=== PATIENT | male | born 1970 | race Caucasian/White ===

== ENCOUNTER 2017-04-13 12:36 | Emergency (ER) | payer BC ==
[~2017-04-13] VITALS: Ht 172.7 cm; Wt 110.4 kg
[~2017-04-13 12:36] MED LIST: ANT25 PO; GLC/500 PO; MISCCAP8 PO
[2017-04-13 12:43] VITALS: TEMP 36.6; Ht 172.7 cm; Wt 110.4 kg
[2017-04-13] MEDS ORDERED: MoRPHine SULFATE 10 MG/ML CARP/VIAL IV STA ×2 (13:02→14:35)
[2017-04-13] MEDS ORDERED: SODIUM CHLORIDE 0.9% 1000ML 1,000 ML IV STA (13:02)
[2017-04-13] MEDS ORDERED: ONDANSETRON INJ 2 MG/ML 2 ML VIAL IV STA (13:02)
[2017-04-13] MEDS ORDERED: MoRPHine SULFATE 4 MG/ML 1 ML CARP\\VIAL ONE ×2 (13:10→14:38)
[2017-04-13] MEDS ORDERED: MoRPHine SULFATE 2 MG/ML CARP ONE ×2 (13:11→14:39)
[2017-04-13 13:32] LABS: HEMATOCRIT 43.1 % (42-52); HEMOGLOBIN 15.4 g/dL (14.0-18.0); IG# 0.02 K/uL (0.00-0.02); LYMPH % 13.7 %; LYMPH ABS # 0.55 K/uL (1.2-3.4); MEAN CELL VOLUME 84.7 fL (80-100); MEAN CORPUSCULAR HEMOGLOBIN 30.3 pg (25-34); MEAN CORPUSCULAR HGB CONC 35.7 g/dl (32-36); MEAN PLATELET VOLUME 9.6 fL (7.4-10.4); MONO % 13.7 %; MONO ABS # 0.55 K/uL (0.11-0.59); NEUT % 72.1 %; NEUT ABS # 2.89 K/uL (1.4-6.5); PLATELET COUNT 143 K/uL (130-400); RED CELL DISTRIBUTION WIDTH CV 12.6 % (11.5-14.5); WHITE BLOOD COUNT 4.01 K/uL (4.8-10.8)
--- NOTE | 2017-04-13 14:12 | DIAGNOSTIC IMAGING REPORT ---
CT SCAN OF THE ABDOMEN AND PELVIS WITHOUT IV CONTRAST CLINICAL HISTORY: Flank pain and hematuria. COMPARISON STUDY: Abdominal CT dated 04/06/2010. TECHNIQUE: CT scan of the abdomen and pelvis is performed from the lung bases to the proximal femora. Images are reviewed in the axial, sagittal, and coronal planes. IV contrast was not administered for this examination. A dose lowering technique was utilized adhering to the principles of ALARA. CT DOSE: 1024.76 mGycm FINDINGS: Lung bases: The heart is normal in size and without pericardial effusion. The lung bases are clear noting dependent atelectasis. There is a tiny hiatal hernia. Liver: The unenhanced liver is enlarged, measuring 21.7 cm in length. The liver demonstrates diffusely diminished attenuation consistent with severe hepatic steatosis. Fatty sparing is noted adjacent to gallbladder fossa. There is no intrahepatic biliary ductal dilatation. Gallbladder: Unremarkable. Spleen: The spleen is enlarged, measuring 15.7 cm in length. Pancreas: The unenhanced pancreas is normal as visualized. Adrenal glands: Unremarkable. Kidneys: The unenhanced kidneys are normal in size. There is a 4 mm obstructing calculus protruding from the right vesicoureteral junction seen on image #[id number]. This causes mild to moderate right hydroureteronephrosis. There is associated right-sided perinephric and periureteric stranding as well as perinephric fluid. No additional calculi are identified in the right kidney. A 3 mm nonobstructing calculus is present in the upper pole of the left kidney. There is no left-sided hydronephrosis. There is no evidence of contour deforming renal mass lesion. Abdominal vasculature: The abdominal aorta is normal in course and caliber. Bowel: There are scattered colonic diverticula without CT evidence of acute diverticulitis. No bowel obstruction is seen. The appendix is well-visualized and normal. Peritoneum: There is no intraperitoneal free air or abdominal ascites. There is a small fat-containing umbilical hernia. Lymphadenopathy: None. Pelvic viscera: The bladder, prostate, and seminal vesicles are normal as imaged. Skeletal structures: Mild lumbosacral spondylosis is observed. No lytic or blastic lesions are seen. IMPRESSION: 1. There is a 4 mm obstructing calculus protruding from the right vesicoureteral junction. This causes mild to moderate right hydroureteronephrosis. 2. No additional right renal calculi are identified. 3. There is a 3 mm nonobstructing left renal calculus. 4. Hepatomegaly and severe hepatic steatosis. 5. Splenomegaly. 6. Additional findings as above. Electronically signed by: Desean Mayes M.D. 04/13/2017 2:10 PM Dictated Date/Time: 04/13/2017 2:05 PM
[2017-04-13 14:15] LABS: ALBUMIN 4.2 gm/dl (3.4-5.0); CALCIUM 8.9 mg/dl (8.5-10.1); CREATININE 1.68 mg/dl (0.60-1.40); TOTAL PROTEIN 8.1 gm/dl (6.4-8.2)
[2017-04-13] MEDS ORDERED: HYDR-5688 PO (14:58)
[2017-04-13] MEDS ORDERED: TAMS0.4C38 PO (14:58)
[2017-04-13] MEDS ORDERED: TAMSULOSIN HCL 0.4 MG CAP PO ONE (15:00)
[2017-04-13 15:24] VITALS: BP 136/90; PULSE 77; O2SAT 98
--- NOTE | 2017-04-14 17:33 | EMERGENCY ROOM VISIT NOTE ---
ED Visit Note First contact with patient: 12:50 Chief Complaint: Right flank pain. History of Present Illness: Mr. Wu is a 47 year-old white male who ambulates into the ED complaining of right flank. Patient reports he was referred to the ED by Dr. Jackson, [facility] physician group, for a kidney stone evaluation. Historically patient reports he has no history of kidney stones but does report he has had diverticulitis in the past which required partial colectomy. Patient reports acute onset of right flank pain that started last evening approximately 14 hours ago. Since that time his pain has been constant but has waxed and waned in intensity. He describes his pain as a sharp/cramping sensation. He rates his discomfort 10/10. His pain is radiating around the abdomen and into the right lower quadrant. He has not identified any aggravating or alleviating factors related to the pain. Associated with the pain he reports she's been nauseated and has had some vomiting and has not been able to urinate since the onset of this pain. Patient denies fevers, chills, sweats, skin eruptions, skin color changes, upper respiratory tract symptoms, shortness of breath, chest pain, diarrhea, constipation, rectal bleeding, black/tarry stools, urinary symptoms, hematuria. Review of Systems: As noted above in history of present illness. All body systems were reviewed and found to be negative as noted above. Past Medical History: Diverticulitis, gout, prediabetes, benign oral pharyngeal neoplasm. Current Medications: Glucophage. Allergies to Medications: Penicillin. Social History: Patient is currently employed; Physical Examination: Vital Signs: Date Time Temp Pulse Resp B/P (MAP) Pulse Ox O2 Delivery O2 Flow Rate FiO2 04/13/17 15:24 77 18 136/90 98 04/13/17 13:28 70 04/13/17 12:43 36.6 71 18 169/114 95 Room Air GENERAL: 47-year-old male in moderate distress due to pain, nontoxic-appearing, afebrile and hemodynamically stable. NEUROLOGICAL: Awake, alert and oriented to person, place and time. Answering questions appropriately and following commands. Normal gait. Good hand eye coordination. SKIN: Warm, dry and pink. No soft tissue eruptions or trauma noted. HEENT: Atraumatic and normocephalic. PERRLA. Sclera white and conjunctiva pink. Oral cavity moist and pink. Pharynx is nonerythematous or edematous. Speech normal. No lymphadenopathy. Trachea midline. No jugular venous distention. BACK: No tenderness over the bony cervical, thoracic and lumbar spine. No tenderness throughout the paraspinous muscles. No obvious muscle spasm. No CVA tenderness. THORAX: Lungs sounds are clear to auscultation and equal bilaterally with symmetrical chest wall. No wheezing, rales or rhonchi. No crepitus, tenderness , subcutaneous air or deformities noted. HEART: Regular rate and rhythm. No gallops, rubs or murmurs are appreciated. ABDOMEN: Obese and soft with moderate tenderness in the right lower quadrant associated with guarding. Positive bowel sounds in all quadrants. No rigidity or organomegaly. EXTREMITIES: Moves all extremities well on command and with purpose. All distal neurovascular statuses are intact and equal bilaterally. ED Course: Patient is assessed as noted above. Patient's medication list was reviewed. Laboratory Testing: Test 04/13/17 13:10 04/13/17 13:20 Range/Units Urine Color YELLOW Urine Appearance CLEAR CLEAR Urine pH 5.0 4.5-7.5 Urine Specific [place] 1.035 1.000-1.030 Urine Protein 1+ NEG Urine Glucose (UA) NEG NEG Urine Ketones NEG NEG Urine Occult Blood 1+ NEG Urine Nitrite NEG NEG Urine Bilirubin NEG NEG Urine Urobilinogen NEG NEG Urine Leukocyte Esterase NEG NEG Urine WBC (Auto) 1-5 0-5 /hpf Urine RBC (Auto) 0-4 0-4 /hpf Urine Hyaline Casts (Auto) 1-5 0-5 /lpf Urine Epithelial Cells (Auto) 10-20 0-5 /lpf Urine Bacteria (Auto) NEG NEG White Blood Count 4.01 4.8-10.8 K/uL Red Blood Count 5.09 4.7-6.1 M/uL Hemoglobin 15.4 14.0-18.0 g/dL Hematocrit 43.1 42-52 % Mean Corpuscular Volume 84.7 80-100 fL Mean Corpuscular Hemoglobin 30.3 25-34 pg Mean Corpuscular Hemoglobin Concent 35.7 32-36 g/dl Platelet Count 143 130-400 K/uL Mean Platelet Volume 9.6 7.4-10.4 fL Neutrophils (%) (Auto) 72.1 % Lymphocytes (%) (Auto) 13.7 % Monocytes (%) (Auto) 13.7 % Eosinophils (%) (Auto) 0.0 % Basophils (%) (Auto) 0.0 % Neutrophils # (Auto) 2.89 1.4-6.5 K/uL Lymphocytes # (Auto) 0.55 1.2-3.4 K/uL Monocytes # (Auto) 0.55 0.11-0.59 K/uL Eosinophils # (Auto) 0.00 0-0.5 K/uL Basophils # (Auto) 0.00 0-0.2 K/uL RDW Standard Deviation 39.0 36.4-46.3 fL RDW Coefficient of Variation 12.6 11.5-14.5 % Immature Granulocyte % (Auto) 0.5 % Immature Granulocyte # (Auto) 0.02 0.00-0.02 K/uL Sodium Level 136 136-145 mmol/L Potassium Level 4.0 3.5-5.1 mmol/L Chloride Level 105 98-107 mmol/L Carbon Dioxide Level 23 21-32 mmol/L Anion Gap 8.0 3-11 mmol/L Blood Urea Nitrogen 20 7-18 mg/dl Creatinine 1.68 0.60-1.40 mg/dl Est Creatinine Clear Calc Drug Dose 64.8 ml/min Estimated GFR () 54.8 Estimated GFR (Non- 47.3 BUN/Creatinine Ratio 11.9 10-20 Random Glucose 146 70-99 mg/dl Calcium Level 8.9 8.5-10.1 mg/dl Total Bilirubin 0.4 0.2-1 mg/dl Direct Bilirubin 0-0.2 mg/dl Aspartate Amino Transf (AST/SGOT) 26 15-37 U/L Alanine Aminotransferase (ALT/SGPT) 44 12-78 U/L Alkaline Phosphatase 71 45-117 U/L Total Protein 8.1 6.4-8.2 gm/dl Albumin 4.2 3.4-5.0 gm/dl Lipase 111 73-393 U/L Chemistry Specimen Hemolysis Bladder scan: Shows 30 ml of urine in the bladder Noncontrast Abdominal/Pelvic CT: Was reviewed by myself and read by the radiologist showing a 4 mm obstructing calculus in the right UVJ causing mild to moderate hydroureteronephrosis and right perinephric stranding. Additional nephrolithiasis were noted. Patient was hydrated with normal saline and he received a total of 12 mg of morphine IV for pain and 4 mg of Zofran IV. Patient was reassessed multiple times during his stay in the emergency department Patient was then given 0.4 mg of Flomax by mouth. Patient's case was reviewed with Dr. Green; we agreed on diagnostic approach , treatment, disposition and plan. Patient was educated about today's findings and instructed on his treatment plan ; he verbalized understanding and agreement with this plan. Clinical Impression: Right ureter calculus. Decision-Making: Initially my differential diagnosis I considered ureter calculus, pyelonephritis, appendicitis, urinary retention, bowel obstruction, and other causes. Disposition: Patient discharged home in stable condition accompanied by his ; prior to departure he was reassessed and subjectively reported he was pain- free. Plan: Patient was placed on a sliding pain medication scale of ibuprofen, acetaminophen and [place]; appropriate narcotic precautions were discussed with the patient and his name was checked in the state database and no red flags were noted. Patient was prescribed Flomax and instructed on achieves per Patient was encouraged stay well-hydrated with increased clear fluids. Patient was encouraged to strain all urine and collect all stones for analysis. Patient was encouraged to follow-up with his family physician for recheck and reevaluation of his creatinine level. Patient was encouraged to follow-up with Dr. Fuentes, urologist, for stone studies and specialty care and treatment. Patient was encouraged return ED for worsening/uncontrolled pain, uncontrolled vomiting, fevers, urinary symptoms or any new/concerning symptoms.
[2017-08-02] MEDS ORDERED: IBUP-103 PO (12:18)
[2017-08-02] MEDS ORDERED: OXYC-57 PO (15:44)
[2017-08-02] MEDS ORDERED: KETO10TA PO (15:44)
== END 2017-04-13 15:26 | disposition home or self-care (01) ==
LOC: C.EDB 12:38 → C.EDC 15:26
DX: N20.1 Calculus of ureter (principal); K57.92 Diverticulitis of intestine, part unspecified, without perforation or abscess without bleeding; M10.9 Gout, unspecified; Z79.84 Long term (current) use of oral hypoglycemic drugs; Z88.0 Allergy status to penicillin

== ENCOUNTER → 2017-07-24 | Outpatient (CLI) | payer OTHER ==
[~2017-07-24] MED LIST changes: -ANT25 PO; +HYDR-5688 PO; +IBUP-103 PO; +KETO10TA PO; -MISCCAP8 PO; +OXYC-57 PO
--- NOTE | 2017-07-24 10:37 | DIAGNOSTIC IMAGING REPORT ---
R HUMERUS MIN 2 VIEWS ROUTINE HISTORY: 47 years-old Male R DISTAL BICEP PAIN acute right arm pain COMPARISON: None available TECHNIQUE: 2 views of the right humerus FINDINGS: No acute fracture or dislocation identified. Mild degenerative changes about the right shoulder. Bone mineralization appears within normal limits. Soft tissues are unremarkable without opaque foreign body. 6 mm bone island of the radial head. IMPRESSION: No acute fracture or dislocation. The above report was generated using voice recognition software. It may contain grammatical, syntax or spelling errors. Electronically signed by: Mynor Millan M.D. 07/24/2017 10:36 AM Dictated Date/Time: 07/24/2017 10:34 AM
== END ==
LOC: C.RAD1850 10:11
PROVIDERS: ATTEND Nurse Practitioner Adult Health
DX: M79.621 Pain in right upper arm (principal)

== ENCOUNTER → 2017-08-02 | Day surgery (SDC) | payer OTHER ==
[2017-07-28 14:04] VITALS: BMI 36.0
[2017-07-28 14:09] VITALS: BMI 36.0
--- NOTE | 2017-08-01 15:35 | HISTORY & PHYSICAL EXAMINATION ---
DATE OF ADMISSION: 08/02/2017 CHIEF COMPLAINT: Right arm injury. HISTORY OF PRESENT ILLNESS: This is a 47-year-old right hand-dominant gentleman from [employer], who works for [employer] who injured his right arm on 07/24/2017. He was apparently going to lift an air compressor and felt a pop in his arm. He had acute onset of pain and discomfort in his arm. He was seen in occupational medicine, had an x-ray done, and referred to our clinic. On clinical exam, he obviously had a distal biceps rupture. We did get an MRI and this was confirmed by MRI. The patient elected for surgical treatment. He denies any prodromal symptoms. He was doing some lifting earlier in the day without a problem. PAST MEDICAL HISTORY: 1. Diabetes. 2. Sleep apnea with CPAP machine. 3. Obesity. 4. Kidney stones. PAST SURGICAL HISTORY: Include: 1. Unspecified stomach surgery. 2. Right shoulder surgery. ALLERGIES: PENICILLIN. CURRENT MEDICATIONS: Metformin. SOCIAL HISTORY: Significant a 47-year-old male. Works at [employer], working for [employer] for the past 9 years. He does not smoke. FAMILY HISTORY: Noncontributory. REVIEW OF SYSTEMS: Significant for diabetes. Denies any chest pain or shortness of breath. No history of DVT or PE. No known bleeding problems. PHYSICAL EXAMINATION: GENERAL: Physical exam reveals a healthy, pleasant middle-aged male. He looks to be in a reasonably good health. He looks older than stated age. HEENT EXAMINATION: Benign. NECK: Supple. No lymphadenopathy. LUNGS: Clear to auscultation. HEART: Regular rate and rhythm. ABDOMEN: Soft, nontender, nondistended. EXTREMITY EXAMINATION: Grossly neurovascularly intact except as follows. Examination of the right arm reveals a little bit of bruising over the medial proximal forearm area. Elbow motion is about 10 degrees, shows full extension to 120 degrees of flexion. He has got an obvious distal biceps rupture with an abnormal hook test. X-RAYS: X-ray of the right elbow from the hospital reviewed. No signs of bony abnormalities. Skeletal thickening of the cortex around his deltoid insertion of the humerus. MRI: MRI is reviewed. Shows an obvious distal biceps rupture. There is retraction of the tendon. 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 PLAN: We talked about treatment options including operative and conservative care. He would like to have this fixed. We will take him to the operating room to do a right distal biceps repair. The risks and benefits of this procedure were explained to the patient including but not limited to DVT, PE, , infection, neurological injury, vascular injury, bleeding problem, pain, limited range of motion, stiffness, failure to relieve symptoms, heterotopic ossification, synostosis, and radial nerve palsy. The patient understands and desires to proceed. Informed consent was obtained. We are going to do this in the main OR as an outpatient due to his BMI and that requirement.
[~2017-08-02] VITALS: Ht 172.7 cm; Wt 109.1 kg
[~2017-08-02] MED LIST changes: +ACETAMINOPHEN 1000 MG/100 ML IV IV ONE; +ATROPINE SULFATE 0.1 MG/ML 5ML SYR IV PRN; +BUPIVACAINE/EPINEPHRINE 0.5% MPF 1:200,000 30 ML VIAL ONE; +CLINDAMYCIN 600 MG/54 ML D5W IV SCH; +CLINDAMYCIN IV 300 MG in DEXTROSE 5% 50ML 50 ML IV SCH; +EpHEDrine SULFATE INJ 50 MG/ML AMP IV PRN; +FENTANYL CITRATE INJ 50 MCG/1 ML 2 ML VIAL ONE; -HYDR-5688 PO; +LACTATED RINGER'S 1000ML 1,000 ML IV SCH; +LIDOCAINE HCL 2% 2 ML VIAL (20MG/ML) ONE; +MEPERIDINE HCL 25 MG/ML CARP IV PRN; +MEPERIDINE HCL 25 MG/ML CARP ONE; +MIDAZOLAM HCL 1 MG/ML 2ML VIAL ONE; +NURSING VERBAL MED ORDER ONE; +ONDANSETRON INJ 2 MG/ML 2 ML VIAL IV PRN; +ONDANSETRON INJ 2 MG/ML 2 ML VIAL ONE; +OXYCODONE/ACETAMINOPHEN 5-325 TAB PO PRN; +PROPOFOL IV EMULSION 10 MG/ML 20 ML VIAL IV ONE; +ROPIVACAINE 0.5% 5 MG/ML 30 ML VIAL ONE; +SODIUM CHLORIDE 0.9% 1000ML 1,000 ML IV SCH
[2017-08-02 11:30] VITALS: BP 132/96; PULSE 69; TEMP 36.9; O2SAT 97; Ht 172.7 cm; Wt 109.1 kg
--- NOTE | 2017-08-02 12:28 | History & Physical Bridge Note ---
H&P Re-Evaluation Bridge Note: I have examined the patient, reviewed the History & Physical and in the interval since the performance of the History & Physical I have noted the following changes of clinical significance: No changes noted
--- NOTE | 2017-08-02 15:37 | [facility] Post Operative Brief Note ---
Immediate Operative Summary Operative Date Aug 02, 2017. Pre-Operative Diagnosis Right distal biceps rupture Post-Operative Diagnosis Same Procedure(s) Performed Right Distal Bicep Tendon Repair Surgeon Dr Bruno Ceo & Founder Surgeon(s) Adolfo Gresham PA-C Estimated Blood Loss 30ml Findings Consistent with Post-Op Diagnosis Specimens None Anesthesia Type General Complication(s) none Disposition Accompanied Pt To Recover: no Disposition: Recovery Room / PACU
--- NOTE | 2017-08-02 15:46 | Discharge Instructions ---
Discharge Instructions Date of Service Aug 02, 2017. Admission Reason for Admission: Right Distal Bicep Rupture Discharge Discharge Diagnosis / Problem: right distal bicep rupture Discharge Goals Goal(s): Improve function, Therapeutic intervention Activity Recommendations Activity Limitations: per Instructions/Follow-up section . Instructions / Follow-Up Instructions / Follow-Up MEDICATIONS: * Resume previous medications unless instructed otherwise by your surgeon. * Always take pain medication on a full stomach or with food to avoid upset stomach. * Do not drink alcohol or drive while taking narcotics. * Ibuprofen or Tylenol may be taken if narcotic not needed. No ibuprofen while taking toradol SPECIAL CARE INSTRUCTIONS: __ None _x_ Keep extremity elevated and iced x 48 hours; apply ice 20-30 minutes 8-10 times/day. May remove at night. _x_ Sling __24 hrs/day __ Remove at night __ Shoulder Immobilizer __ 24 hrs/day __ Remove at night _x_ Dressing _x_ Maintain until seen in office, may shower with plastic over site __ Remove dressings in 24-48 hours and then may shower __ Cover incisions with band-aids after showering __ Do not remove steri-strips Call physician if chills or temperature rises above 102 degrees or pain unrelieved by prescribed pain medications at . . follow up in 2 weeks Current Hospital Diet Patient's current hospital diet: Discharge Diet Recommended Diet: Regular Diet Procedures Procedures Performed: Right Distal Bicep Tendon Repair Pending Studies Studies pending at discharge: no Medical Emergencies . Who to Call and When: Medical Emergencies: If at any time you feel your situation is an emergency, please call 911 immediately. . Non-Emergent Contact Non-Emergency issues call your: Surgeon . "Provider Documentation" section prepared by Hadley Gresham. .
[2017-08-02] MEDS: FENTANYL CITRATE INJ 50 MCG/1 ML 2 ML VIAL IV PRN ×4 (15:57→16:15)
--- NOTE | 2017-08-02 16:34 | Anesthesiology Progress Note ---
Anesthesia Post Op Note Date & Time Aug 02, 2017 at 16:34 Vital Signs Pain Intensity: 4 Vital Signs Past 12 Hours Date Time Temp Pulse Resp B/P (MAP) Pulse Ox O2 Delivery O2 Flow Rate FiO2 08/02/17 16:20 37.3 81 20 145/93 93 Room Air 08/02/17 16:10 81 20 166/103 93 08/02/17 16:00 75 20 159/96 98 Oxymask 15 08/02/17 15:50 75 18 136/118 96 Oxymask 15 08/02/17 15:44 36.9 82 18 175/108 97 Oxymask 15 08/02/17 11:30 36.9 69 20 132/96 (108) 97 Room Air Notes Mental Status: alert / awake / arousable, participated in evaluation Pt Amnestic to Procedure: Yes Nausea / Vomiting: adequately controlled Pain: adequately controlled Airway Patency, RR, SpO2: stable & adequate BP & HR: stable & adequate Hydration State: stable & adequate Anesthetic Complications: no major complications apparent
[2017-08-02 16:40] VITALS: BP 139/85; PULSE 80; TEMP 36.4; O2SAT 94
[2017-08-02 17:10] VITALS: BP 165/82; PULSE 85; TEMP 36.4; O2SAT 95
--- NOTE | 2017-08-02 20:08 | OPERATIVE REPORT ---
DATE OF OPERATION: 08/02/2017 SURGEON: Ricky Bruno MD ALARM SIGNAL OPERATOR: ALONA Garsia PREOPERATIVE DIAGNOSIS: Right distal biceps rupture. POSTOPERATIVE DIAGNOSIS: Right distal biceps rupture. PROCEDURE PERFORMED: Right distal biceps repair. COMPLICATIONS: None. ESTIMATED BLOOD LOSS: 30 mL TOURNIQUET TIME: 43 minutes at 250 mmHg. ANESTHESIA: General. SPECIMENS: None. 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 He was lifting some type of air compressor and felt a pop in his arm. He had acute onset of pain and discomfort. He was seen in clinic and diagnosed with a distal biceps rupture. This was confirmed by MRI. He elected to proceed with surgical treatment. The patient is a very large gentleman and due to his BMI, we had to do this in the main hospital. OPERATIVE PROCEDURE: The patient taken to the operating room, identified, and placed on the operating table in supine position. All contact areas were appropriately padded. IV antibiotics followed by anesthesia team. A general anesthetic was implemented by anesthesia team. Right upper extremity tourniquet was then placed. The right arm was then prepped and draped in usual sterile fashion. The right arm was elevated and exsanguinated with Esmarch tourniquet was placed at 250 mmHg. A transverse incision was made in the antecubital fossa. Blunt dissection carried through the subcutaneous tissues down to the fascia. The fascial envelope was opened. There was a large vein, which was retracted laterally. There was fluid in the tendon sheath area. I was able to easily locate the biceps tendon. I pulled this out of the wound. I trimmed up to distal end as it looked having an elephant foot appearance and we trimmed this down so it would fit in the bone tunnel. I then tucked this back up into the arm. A Corine clamp was then used to identify the path from the anterior to the posterior aspect of the elbow. I then flexed the elbow and pronated the arm and made a doris in the posterior aspect of the arm for the posterior exposure. A longitudinal incision was made centered over the doris for the posterior exposure. I kept the arm in maximum pronation at all times to protect the Posterior Interosseous nerve. Sharp dissection was carried through the subcutaneous tissues down to the forearm fascia. The fascia was incised longitudinally. I then keeping the arm pronated at all times and then bluntly spread to the extensor muscle mass taking great care not to expose the ulna. We dissected directly down the radial tuberosity. It was cleaned of all soft tissues. I used a rongeur to clean the soft tissues. I then used a bur to create a hole into the intramedullary canal. I irrigated this extensively to get rid of all bony debris to avoid heterotopic ossification. A drill bit was then used to create some holes in the lateral aspect of the radius into the intramedullary canal and then passing sutures were passed. I then passed a passing suture from the anterior aspect of the arm to the posterior aspect of the arm around the radial tuberosity posteriorly. I then placed 2 stitches in the biceps tendon itself. I used a #2 FiberWire in a running fashion up and down the tendon then a #5 Ethibond using a modified Bunnel suture. I then used the passing suture to pass the tendon from the antecubital fossa and the posterior aspect of the arm. I used the passing sutures in the radius to pass those sutures into the intramedullary canal and out the lateral aspect of the radius. I then tucked the biceps tendon into the hole created. I then tied the sutures laterally on the radial cortex to get excellent approximation. The tendon lied down nicely over the brachialis muscle. I then irrigated both wounds extensively. I injected locally with total of 30 mL of 0.5% Marcaine with epinephrine with 20 mL in the dorsal wound and 10 mL into the antecubital fossa wound. Both wounds were then irrigated. The anterior wound was closed with 2-0 Dexon suture in buried interrupted fashion followed by 3-0 Prolene suture in a subcuticular fashion. The posterior wound was closed with 0 Vicryl suture in a running fashion of the fascia. Of note, his muscle was very prominent and it was hard to even tuck back in the fascia but we did close this and close it a bit loosely to allow for some swelling. Subcutaneous tissue was then closed with 3-0 Dexon suture in a buried knot fashion. Skin was closed with 3-0 Prolene suture in a subcuticular fashion. The arm was then cleaned and dried and a sterile dressing of Steri-Strips, Xeroform, 4 x 4s, sterile cast padding, and a well-padded posterior splint followed by a sling were applied. The patient then brought out of general anesthesia and transferred to the recovery room in stable condition. The patient tolerated with no complications. All needle, sponge counts were correct at the end of the operation. I attest to the content of the Intraoperative Record and any orders documented therein. Any exceptions are noted below. MTDD
== END | disposition home or self-care (01) ==
LOC: C.ACU 11:39
PROVIDERS: ATTEND Orthopaedic Surgery Sports Medicine
DX: S46.201A Unspecified injury of muscle, fascia and tendon of other parts of biceps, right arm, initial encounter (principal); X50.9XXA Other and unspecified overexertion or strenuous movements or postures, initial encounter; Y99.0 Civilian activity done for income or pay; Y92.89 Other specified places as the place of occurrence of the external cause; R73.03 Prediabetes; G47.33 Obstructive sleep apnea (adult) (pediatric); F17.220 Nicotine dependence, chewing tobacco, uncomplicated; E66.9 Obesity, unspecified; Z88.0 Allergy status to penicillin; Z79.84 Long term (current) use of oral hypoglycemic drugs